=== PATIENT | female | born 1995 | race Caucasian/White ===

== ENCOUNTER → 2018-08-18 22:20 | Observation (INO) ==
[2018-08-18 19:19] LABS: Amphetamine Screen,Urine Negative ng/mL (Cutoff=1000); Barbiturate Screen,Urine Negative ng/mL (Cutoff=200); Benzodiazepines Screen,Urine Negative ng/mL (Cutoff=200); Cannabinoid Screen,Urine Negative ng/mL (Cutoff = 50); Cocaine Screen,Urine Negative ng/mL (Cutoff= 300); Opiate Screen,Urine Negative ng/mL (Cutoff=300); Phencyclidine Screen,Urine Negative ng/mL (Cutoff=25)
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
== END | disposition home or self-care (01) ==
LOC: 1NENULAB
PROVIDERS: ADMIT Advanced Practice Midwife; ATTEND Advanced Practice Midwife

== ENCOUNTER 2018-09-05 04:06 | Inpatient (IN) ==
[2018-09-05] MEDS ORDERED: Metoclopramide 10 MG/2 ML VIAL IVP PRN (05:05)
[2018-09-05] MEDS ORDERED: *HR* Nalbuphine 10 MG/ML AMPUL IVP PRN (05:05)
[2018-09-05] MEDS ORDERED: Naloxone 0.4 MG/ML INJ IVP PRN (05:05)
[2018-09-05] MEDS ORDERED: Famotidine 20 MG/2 ML VIAL IVP PRN (05:05)
[2018-09-05] MEDS ORDERED: Ringers Solution, Lactated 1,000 ML IVC SCH (05:15)
[2018-09-05 05:25] LABS: Basophils % 0.2 %; Eosinophils % 0.3 %; Hematocrit 31.9 % (35.3-44.9); Hemoglobin 10.1 g/dL (11.5-15.4); Immature Granulocytes % 0.4 % (0-4); Lymphocytes % 20.1 %; Mean Corpuscular HGB Conc 31.7 g/dL (31.6-35.5); Mean Corpuscular Hemoglobin 25.8 pg (28.0-33.3); Mean Corpuscular Volume 81.6 fL (83.0-100.0); Mean Platelet Volume 11.1 fL (9.4-12.4); Monocytes # 0.9 K/mcL (0.0-1.3); Monocytes % 8.4 %; Neutrophils # 7.2 K/mcL (1.6-8.9); Platelet Count 267 K/mcL (140-400); Red Blood Count 3.91 M/mcL (3.82-4.97); Red Cell Distribution Width 14.1 % (11.5-14.5); Segmented Neutrophils % 70.6 %
[2018-09-05] MEDS ORDERED: miSOPROStol 25 MCG TABLET VG SCH (05:30)
[2018-09-05 05:47] LABS: Amphetamine Screen,Urine Negative ng/mL (Cutoff=1000); Barbiturate Screen,Urine Negative ng/mL (Cutoff=200); Benzodiazepines Screen,Urine Negative ng/mL (Cutoff=200); Cannabinoid Screen,Urine Negative ng/mL (Cutoff = 50); Cocaine Screen,Urine Negative ng/mL (Cutoff= 300); Opiate Screen,Urine Negative ng/mL (Cutoff=300); Phencyclidine Screen,Urine Negative ng/mL (Cutoff=25)
--- NOTE | 2018-09-05 08:51 | OB/GYN History & Physical ---
Date of Encounter: 09/05/18 Time of Encounter: 08:49 Assessment and Plan (1) 39 weeks gestation of Current visit: Yes Status: Acute Pt presents at 39 weeks EGA for induction of labor. Will admit to L&D and give Cytotec. Will perform amniotomy when able and expect . History of Present Illness Chief complaint: Here for induction HPI: Ms. Abbott is a 22 year old female Past Med Surg Social Fam HX - Past Medical History Source: patient, old records reviewed Medical history: no medical history Additional medical history: vaginal deligvery 2013 Psychiatric history: anxiety, depression - Past Surgical History Surgical History: no surgical history - Social History Smoking Status: Never smoker Smokeless Tobacco Status: No Alcohol use: none Drug use: none - Family History Father Hx Family Cardiac Disorders: Yes (HTN) Mother Living Status: Still Living Hx Family Cardiac Disorders: No Hx Family Respiratory Disorders: No Hx Family Cancer: No Hx Family GI Disorders: No Hx Family Genitourinary Disorders: No Hx Family Endocrine Disorder: No Hx Family Musculoskeletal Disorders: No Hx Family Neuromuscular Disorders: No Hx Family Neurologic Disorders: No Hx Family HEENT Disorders: No Hx Family Autoimmune Disorders: No Hx Family Reproductive Disorders: No Hx Family Psychosocial Disorders: No Hx Family Medical Disorders: No Obstetrical History - Pregnancies : 3 Para: 2 Medications and Allergies No Known Home Drugs 10/02/17 [History] Tablet 1 tab PO DAILY 09/05/18 [History] Allergy/AdvReac Type Severity Reaction Status Date / Time No Known Allergies Allergy Verified 09/05/18 04:47 Exam - Constitutional Constitutional: well developed, no acute distress - HEENT HEENT: EOMI, PERRL - Neck Neck exam: full ROM - Lungs Respiratory exam: CTAB - Cardiovascular Cardiovascular exam: RRR - Abdomen Abdomen: Present: bowel sounds normal, gravid - Extremities Extremities exam: full ROM Deep Tendon Reflex Grade: 2+ Normal - Cervix Dilation: 4 Effacement: 80 Station: -1 Results Result Diagrams: 09/05/18 04:30 Abnormal lab results Hgb 10.1 g/dL (11.5-15.4) L 09/05/18 04:30 Hct 31.9 % (35.3-44.9) L 09/05/18 04:30 MCV 81.6 fL (83.0-100.0) L 09/05/18 04:30 MCH 25.8 pg (28.0-33.3) L 09/05/18 04:30 All other labs normal. - VTE Reasons for not Prescribing Prophylaxis: Treatment not Indicated - Low risk for VTE
[2018-09-05] MEDS ORDERED: Epidural Premix (fent/bupiv) 110 ML EP ONE (12:06)
[2018-09-05] MEDS ORDERED: Lidocaine -MPF 2% 5 ML VIAL ONE (12:08)
[2018-09-05] MEDS ORDERED: Oxytocin 20 units/ LR 1000 mL 20 UNIT/1,000 ML BAG IVC ONE ×2 (12:31→14:30)
[2018-09-05] MEDS ORDERED: Epidural Premix (fent/bupiv) 110 ML EP SCH (12:45)
--- NOTE | 2018-09-05 12:46 | Anesthesia Procedures ---
Date of Encounter: 09/05/18 Time of Encounter: 12:31 Procedures: Anesthesia - Epidural/Spinal Patient ID/Chart reviewed: Yes Patient examined: Yes OB Eval: Gestational age: term OB Eval: : 3 OB Eval: Hx Para: 2 OB Eval: Contractions: Non-stressed pattern Consent Obtained: Yes Supplemental Oxygen: None/Room Air Site Prep: Aseptic Technique, Sterile prep and drape, 0.5% Chlorhexidine/Alcohol Patient position: right lateral decubitus Local Anesthetic: Lidocaine 1% Amount of Local Anesthetic used: 2 Touhy Needle Gauge: 18 Touhy Needle Depth (cm): 7 Catheter Depth at Skin (cm): 4 Test Dose (1.5% Lido + Epi): Volume given (mls): 0 Loading Dose: Other: spinal dose 0.7ml bup 0.25% plain though 25g sprot Loss of Resistance (GURMEET): Yes (saline) Blood: Yes (in cath and cont once pulled back 2 cm, then removed. ) CSF: Yes (with 25g sprotte only ) Paresthesia: No Procedure: vss though out, pt complete when I started, very hard for patient to get into any position, right side lying positioning.
--- NOTE | 2018-09-05 12:50 | Anesthesia Evaluation PreOp ---
Date of Encounter: 09/05/18 Time of Encounter: 12:11 - Past History Planned Operation: del, 5cm in labor Cardiac History: Denies any Significant Hx Pulmonary History: Denies Any Significant HX [employer]CH[employer]ISE TE[employer] MANAGER History: Denies Any Significant HX Other Medical History: Denies Any Significant HX Anesthesia History: No Prior Anesthetic Complications, Past Anesthesia (previous epidurals,) Alcohol Use: none Drug use: none Medications and Allergies No Known Home Drugs 10/02/17 [History] Tablet 1 tab PO DAILY 09/05/18 [History] Allergy/AdvReac Type Severity Reaction Status Date / Time No Known Allergies Allergy Verified 09/05/18 04:47 Anesthesia Results - Labs 09/05/18 04:30 Anesthesia Exam - HEENT Pupil (Motor): Pupils equal Mallampati: II Teeth: Normal Oral Opening: Greater than 3 - MERCH[employer]ISE TE[employer] MANAGER LOC: Oriented [employer]CH[employer]ISE TE[employer] MANAGER Motor: Normal RUE, Normal LUE, Normal RLE, Normal LLE, Normal Face [employer]CH[employer]ISE TE[employer] MANAGER Sensory: Normal: RUE, LUE, RLE, LLE, Face - Cardiac Rhythm: Regular Murmur: None - Pulmonary Breath Sounds: bilateral Clear Respiratory Effort: Symmetrical Anesthesia Assess/Plan ASA Score: 2 Level of consciousness: Cooperative, Oriented Anesthetic Plan: General, Spinal, Epidural Monitoring Plan: Standard Monitors Recovery Plan: PACU
[2018-09-05] MEDS ORDERED: Bupivacaine-MPF 0.25% 10 ML VIAL ONE (13:01)
--- NOTE | 2018-09-05 13:24 | OB/GYN Procedure Note ---
Delivery - Delivery Date: 09/05/18 Provider: Jamie Hernandez Intrapartum events: none, meconium Delivery induction: misoprostol Delivery monitor: external FHT, external uterine Anesthesia: epidural Quantitated Blood Loss: 350 - Infant (s) A Delivery Date: 09/05/18 Delivery Time: 12:43 Presentation: vertex Position: MARZENA Route of delivery: Gender: Female Viability: Viable Pounds: 9 Ounces: 4 at 1 minute: 8 at 5 mins: 9 Shoulder Dystocia: not encountered Specimens collected: cord blood Placenta: spontaneous Cord: nuchal cord - Repair Episiotomy: none Laceration Description: None - Complications Delivery complications: uterine atony (Given Methergine 0.2 mg IM x 1 and Cytotec 600 mcg po x 1.) - Disposition Mom disposition: stable in LDR [place] disposition: stable in LDR - Comments Comments: Pt s/p of liveborn female infant 9lb 4oz with APGARS 8 at 1 min and 9 at 5 min. Spontaneous rib #three-vessel cord a cerebrovascular and 50 mL she did have some uterine atony uterine cavity was massaged free of any residual tissue she was given Cytotec 6 for micrograms by mouth Methergine 0.2 mg IM there were no lacerations or complications mother and recovered in labor and delivery room
[2018-09-05] MEDS ORDERED: Acetaminophen 325 MG TABLET PO PRN (15:38)
[2018-09-05] MEDS ORDERED: Measles/Mumps/Rubella Vacc 0.5 ML VIAL SQ PRN (15:38)
[2018-09-05] MEDS ORDERED: Oxytocin 20 units/ LR 1000 mL 20 UNIT/1,000 ML BAG IVC SCH (15:38)
[2018-09-05] MEDS ORDERED: Rho Immune Globulin 1,500 UNIT SYRINGE IM PRN (15:38)
[2018-09-05] MEDS ORDERED: Methylergonovine 0.2 MG/ML AMPUL IM ONE (15:46)
[2018-09-05] MEDS ORDERED: miSOPROStol 100 MCG TABLET PO ONE (16:15)
[2018-09-05] MEDS: Ibuprofen 600 MG TABLET PO PRN (16:17)
[2018-09-06 08:30] VITALS: BP 112/73
[2018-09-06 08:30] LABS: Basophils % 0.2 %; Eosinophils % 0.1 %; Immature Granulocytes % 0.3 % (0-4); Lymphocytes # 1.8 K/mcL (0.6-4.6); Lymphocytes % 13.8 %; Mean Corpuscular HGB Conc 31.1 g/dL (31.6-35.5); Mean Corpuscular Hemoglobin 25.5 pg (28.0-33.3); Mean Corpuscular Volume 82.1 fL (83.0-100.0); Monocytes % 7.7 %; Neutrophils # 10.4 K/mcL (1.6-8.9); Platelet Count 236 K/mcL (140-400); Red Blood Count 3.29 M/mcL (3.82-4.97); Red Cell Distribution Width 14.4 % (11.5-14.5); Segmented Neutrophils % 77.9 %
[2018-09-06 08:59] LABS: Hemoglobin 8.4 g/dL (11.5-15.4)
[2018-09-06] MEDS ORDERED: Prenatal Vit/FA 1 EACH TABLET PO SCH (09:00)
[2018-09-06] MEDS: Ibuprofen 600 MG TABLET PO PRN (12:21)
--- NOTE | 2018-09-06 15:12 | Discharge Summary ---
Date of Encounter: 09/06/18 Time of Encounter: 15:10 - Discharge Diagnosis (1) Vaginal delivery Priority: Primary Status: Resolved Comments: Patient meeting day one milestones. Pain well-controlled with prescribed medications. Voiding without difficulty, tolerating regular diet, bleeding light. No bowel movement yet. Anticipate discharge today (2) anemia Priority: Secondary Status: Acute Comments: Continue twice a day iron supplementation. Sent home with iron prescription - Discharge Medications Prescriptions: New Ferrous Sulfate 325 mg PO BID #60 tablet Acetaminophen [Tylenol] 650 mg PO Q6HR PRN tablet PRN Reason: Mild Pain Ibuprofen [Motrin] 600 mg PO Q6HR PRN #60 tablet PRN Reason: Cramping Docusate [Colace] 100 mg PO BID capsule Continued Tablet 1 tab PO DAILY Home Medications: Tablet 1 tab PO DAILY 09/05/18 [History] Acetaminophen [Tylenol] 650 mg PO Q6HR PRN tablet 09/06/18 [Rx] Docusate [Colace] 100 mg PO BID capsule 09/06/18 [Rx] Ferrous Sulfate 325 mg PO BID #60 tablet 09/06/18 [Rx] Ibuprofen [Motrin] 600 mg PO Q6HR PRN #60 tablet 09/06/18 [Rx] Allergies/Adverse Reactions: Allergy/AdvReac Type Severity Reaction Status Date / Time No Known Allergies Allergy Verified 09/05/18 04:47 Data Procedures and tests throughout hospitalization: Laboratory Tests 09/05/18 09/05/18 09/06/18 04:30 04:30 04:49 WBC 10.1 13.3 H RBC 3.91 3.29 L Hgb 10.1 L 8.4 L D Hct 31.9 L 27.0 L MCV 81.6 L 82.1 L MCH 25.8 L 25.5 L MCHC 31.7 31.1 L RDW 14.1 14.4 Plt Count 267 236 MPV 11.1 11.0 Immature Gran % 0.4 0.3 Seg Neutrophils % 70.6 77.9 Lymphocytes % 20.1 13.8 Monocytes % 8.4 7.7 Eosinophils % 0.3 0.1 Basophils % 0.2 0.2 Neutrophils # 7.2 10.4 H Lymphocytes # 2.0 1.8 Monocytes # 0.9 1.0 Eosinophils # 0.0 0.0 Basophils # 0.0 0.0 Urine Opiates Screen Negative Ur Barbiturates Screen Negative Ur Phencyclidine Scrn Negative Ur Amphetamines Screen Negative U Benzodiazepines Scrn Negative Urine Cocaine Screen Negative U Marijuana (THC) Screen Negative Ur Drug Screen Interp See Below Labs on day of discharge: Labs from last 24 hours 09/06/18 04:49 WBC 13.3 H RBC 3.29 L Hgb 8.4 L D Hct 27.0 L MCV 82.1 L MCH 25.5 L MCHC 31.1 L RDW 14.4 Plt Count 236 MPV 11.0 Immature Gran % 0.3 Seg Neutrophils % 77.9 Lymphocytes % 13.8 Monocytes % 7.7 Eosinophils % 0.1 Basophils % 0.2 Neutrophils # 10.4 H Lymphocytes # 1.8 Monocytes # 1.0 Eosinophils # 0.0 Basophils # 0.0 Date of admission: 09/05/18 04:06 Primary care physician: Bianca Wright CNP Consults: 09/05/18 15:38 Consult to Inspector Experimental Assembly [CONS] Routine Comment: Vaginal delivery, consult needed Discharging clinician: Deisy Rivera Anticipated date of discharge: 09/06/18 - Patient Status Disposition: Home, Self-Care Condition: Good Functional capacity at discharge: independent ambulation Overall status at discharge: patient is progressing back to baseline - Discharge Instructions Follow Up With: Bianca Wright CNP [Primary Care Provider] - Jamie Hernandez MD [Partnered Physician] - - Diet and Activity Activity: resume usual activities as tolerated Diet: regular diet Hospital Course Reason for admission: induction of labor Delivery: Episiotomy: none Laceration: none Other procedures: none complications: none Discharge diagnosis: IUP at term delivered [place] baby: female Hospital course: Delivery Date: 09/05/18 Provider: Jamie Hernandez Intrapartum events: none, meconium Delivery induction: misoprostol Delivery monitor: external FHT, external uterine Anesthesia: epidural Quantitated Blood Loss: 350 - (s) Infant A Infant Delivery Date: 09/05/18 Infant Delivery Time: 12:43 Presentation: vertex Position: MARZENA Route of delivery: Gender: Female Viability: Viable Pounds: 9 Ounces: 4 at 1 minute: 8 at 5 mins: 9 Shoulder Dystocia: not encountered Specimens collected: cord blood Placenta: spontaneous Cord: nuchal cord - Repair Episiotomy: none Laceration Description: None - Complications Delivery complications: uterine atony (Given Methergine 0.2 mg IM x 1 and Cytotec 600 mcg po x 1.) - Disposition Mom disposition: stable in LDR disposition: stable in LDR - Comments Comments: Pt s/p of liveborn female 9lb 4oz with APGARS 8 at 1 min and 9 at 5 min. Spontaneous rib #three-vessel cord a cerebrovascular and 50 mL she did have some uterine atony uterine cavity was massaged free of any residual tissue she was given Cytotec 6 for micrograms by mouth Methergine 0.2 mg IM there were no lacerations or complications mother and recovered in labor and delivery room Time Attestation: Total time spent providing and/or coordinating discharge services: Time Spent: Less than 30 minutes Exam - Constitutional Vitals: Temp Pulse Resp BP Pulse Ox 97.4 F L 71 16 112/73 99 09/06/18 08:27 09/06/18 08:27 09/06/18 08:27 09/06/18 08:27 09/06/18 08:27 General appearance IM: A&O X 3, pleasant, no acute distress, answers questions appropriately - Respiratory Respiratory exam: Present: CTAB - Cardiovascular Cardiovascular exam IM: Present: RRR, +S1, +S2 - GI/Abdominal GI/Abdominal exam IM: normal bowel sounds, soft - Rectal Rectal exam: deferred - External exam: normal external exam Uterine Tone: Firm Uterus Position: 1 Finger Below Umbilicus, Midline - Extremities Exam Extremities exam IM: Present: full ROM, normal capillary refill, normal inspection - Neurological Exam Neurological exam: alert, normal gait, oriented X3
== END 2018-09-06 16:11 | disposition home or self-care (01) | DRG 560 ==
LOC: 1NENULAB 04:06 → 1NENUOBS 15:24
PROVIDERS: ADMIT Obstetrics & Gynecology; ATTEND Obstetrics & Gynecology